=== PATIENT | female | born 1990 ===

== ENCOUNTER → 2017-02-27 | Outpatient (CLI) | payer OTHER ==
--- NOTE | 2017-02-27 13:05 | Diagnostic Imaging Report ---
Indication: Pain Comparison: None Findings: Paranasal sinus series performed. The paranasal sinuses are symmetric and clear. No air-fluid levels identified. Orbital rims are symmetric. No evidence of osteitis. Impression: Negative exam
== END | disposition home or self-care (01) ==
LOC: RAD 11:34
DX: J01.90 Acute sinusitis, unspecified (principal); R05 Cough
CPT/HCPCS: 70220